=== PATIENT | male | born 1940 | race African-American/Black ===

== ENCOUNTER 2018-01-26 13:21 | Outpatient (CLI) | payer MEDICARE | END 2018-01-26 13:22 | disposition home or self-care (01) | LOC: BICCT 13:21 | PROVIDERS: ATTEND Internal Medicine | DX: R42 Dizziness and giddiness (principal); G31.9 Degenerative disease of nervous system, unspecified | CPT/HCPCS: 70450 ==

== ENCOUNTER 2023-07-29 19:11 | Inpatient (IN) | payer MEDICARE ==
[~2023-07-29 19:11] MED LIST: Amiodarone 150 MG/3 ML VIAL ONE; Calcium Chloride 1 GM/10 ML Abboject SYRINGE ONE; EPINEPHrine 1 MG/10 ML Abboject SYRINGE ONE; Sodium Bicarb 50 MEQ/50 ML Abboject 8.4% SYRINGE ONE
[2023-07-29] MEDS ORDERED: EPINEPHrine 1 MG/10 ML Abboject SYRINGE ONE (19:13)
[2023-07-29] MEDS ORDERED: Calcium Chloride 1 GM/10 ML Abboject SYRINGE ONE (19:13)
[2023-07-29] MEDS ORDERED: Dextrose 50% Abboject 50 ML SYRINGE ONE (19:13)
[2023-07-29] MEDS ORDERED: fentaNYL 50 mcg/mL 1 mL Vial ONE (19:20)
[2023-07-29 19:23] LABS: Hematocrit 26.6 % (42.0-52.0); Hemoglobin 8.4 g/dL (14.0-18.0); Manual Diff?? YES; Mean Corpuscular HGB CONC 31.6 g/dL (32.0-36.0); Mean Corpuscular Hemoglobin 31.1 pg (27.0-31.0); Mean Corpuscular Volume 98.5 fl (78.0-98.0); Mean Platelet Volume 10.5 fL (7.4-10.4); RBC Distribution Width 13.2 % (11.5-14.5); White Blood Cell (WBC) Count 5.2 10x3/uL (4.8-10.8)
[2023-07-29 19:25] LABS: Delete Auto Diff?? YES; Platelet Count 82 10x3/uL (130-400)
[2023-07-29] MEDS ORDERED: NOREPINEPHRINE 8 MG/250 ML-D5W 250 ML ONE (19:26)
[2023-07-29] MEDS ORDERED: Fentanyl CADD 100 ML IV SCH ×2 (19:30→21:45)
[2023-07-29 19:49] LABS: Band 8 % (5-11); CellaVision Operator ID LAB.MJL; Large Platelets 14.6 % (0-5); Lymphocytes 58 % (21-51); Monocytes 1 % (0-10); Myelocyte 2 % (0-0); Neutrophil 30 % (42-75); Ovalocytes SLIGHT = 2-5 cells HPF (0-1); Platelet Adequacy Comment Platelets Decreased; Polychromasia SLIGHT = 2-3 cells HPF (0-2); Reactive Lymphocytes 1 % (0-10); Total Cell Count 103
[2023-07-29] MEDS ORDERED: Vasopressin 20 UNITS/ML VIAL ONE ×2 (19:49→19:51)
[2023-07-29] MEDS ORDERED: Hydrocortisone Sod Succ/PF 100 mg/2 ml Vial ONE ×2 (19:49→19:51)
[2023-07-29 19:57] LABS: Critical Call Chem Troponin I NUR.RR5@1957; Troponin I 0.677 ng/mL (< 0.028)
[2023-07-29 19:58] LABS: Critical Call Chemistry NUR.RR5@1957; Glucose 785 mg/dL (83-110)
[2023-07-29 19:59] LABS: ALT (SGPT) 62 U/L (8-55); AST (SGOT) 137 U/L (5-34); Albumin 2.3 g/dL (3.4-4.8); Alkaline Phosphatase 304 U/L (40-110); Anion Gap 18 mmol/L (10-20); BUN (Urea Nitrogen) 61 mg/dL (8.4-25.7); Bilirubin, Total 0.4 mg/dL (0.2-1.2); Calc. Creatinine Clearance 0 mL/min (70-130); Calcium 7.3 mg/dL (7.8-10.44); Carbon Dioxide 20 mmol/L (23-31); Chloride 106 mmol/L (98-107); Estimated GFR 34; Globulin 2.1 g/dL (2.4-3.5); Potassium 5.8 mmol/L (3.5-5.1); Protein, Total 4.4 g/dL (5.8-8.1); Sodium 138 mmol/L (136-145)
[2023-07-29 20:05] LABS: Analyzer IN Cardio ER; Base Excess (BEa) -13.8 mEq/L (-2.0 to +3.0); CO2 Tension 32.4 mmHg (35.0-45.0); Calcium, Ionized (arterial) 1.35 mmol/L (1.12-1.30); Carboxyhemoglobin (COHb) 0.4 gm% (0.0-3.0); Hematocrit-ABG 22 % (42.0-52.0); Hemoglobin (Hb) 7.4 g/dL (14.0-18.0); O2 Tension (PaO2), arterial 503.9 mmHg (> 60.0); pH, Arterial 7.214 (7.35-7.45)
[2023-07-29 20:12] LABS: INR-International Normal Ratio 2.5
[2023-07-29 20:17] LABS: Critical Call Chem-Lactate NUR.SH13@2015
[2023-07-29 20:18] LABS: Acetaminophen Less than 10 mcg/mL (10.0-30.0); Alcohol Less than 10.0 mg/dL (Less than 10); CK (CPK) 187 U/L (30-200); Magnesium 2.4 mg/dL (1.6-2.6); Salicylate Less than 8.0 mg/dL (15.0-30.0)
[2023-07-29 20:24] LABS: Actual Bicarbonate (HCO3a) 12.8 mEq/L (22-28); Puncture Site RBA
[2023-07-29 20:43] LABS: Amphetamine Not Detected (NotDetected); Barbiturates Screen Not Detected (NotDetected); Benzodiazepine Screen Not Detected (NotDetected); Cocaine Metabolite Screen Not Detected (NotDetected); Methadone Not Detected (NotDetected); Methamphetamine Not Detected (NotDetected); Opiate Screen Not Detected (NotDetected); Oxycodone Screen Not Detected (NotDetected); Phencyclidine (PCP) Not Detected (NotDetected); THC/Cannabinoid Screen Not Detected (NotDetected); Tricyclic Screen Not Detected (NotDetected)
[2023-07-29] MEDS ORDERED: Vancomycin 1 GM/200 ML (FROZEN) BAG ONE (21:18)
[2023-07-29] MEDS ORDERED: Cefepime 2 GM VIAL ONE (21:18)
[2023-07-29] MEDS ORDERED: Sodium Chloride 0.9% 100 ML ONE (21:18)
[2023-07-29] MEDS ORDERED: Ondansetron PF 4 MG/2 ML Vial IVP PRN ×2 (21:25→21:30)
[2023-07-29] MEDS ORDERED: Vasopressin 20 UNITS in Sodium Chloride 0.9% 50 ML IV PRN (21:25)
[2023-07-29] MEDS ORDERED: Ventilator Sedation Protocol 1 EACH FS ONE (21:25)
[2023-07-29] MEDS ORDERED: NOREPINEPHRINE 8 MG/250 ML-D5W 250 ML IVPB PRN (21:25)
[2023-07-29] MEDS ORDERED: Ondansetron ODT 4 MG TAB SL PRN (21:30)
[2023-07-29] MEDS ORDERED: Ventilator Sedation Protocol 1 EACH FS SCH (21:30)
[2023-07-29] MEDS ORDERED: Lactated Ringer's 1,000 ML IV SCH (21:30)
[2023-07-29] MEDS ORDERED: Dextrose 50% Abboject 50 ML SYRINGE SLOW IVP PRN (21:41)
[2023-07-29] MEDS ORDERED: Glucagon 1 MG/ML KIT IM PRN (21:41)
[2023-07-29] MEDS ORDERED: Dextrose 5% in Water 1,000 ML IV PRN (21:41)
[2023-07-29] MEDS ORDERED: Lorazepam 2 MG/ML VIAL SLOW IVP PRN (21:45)
[2023-07-29] MEDS ORDERED: Propofol BOLUS 1,000 MG/100 ML VIAL IV PRN (21:45)
[2023-07-29] MEDS ORDERED: Propofol 1,000 MG/100 ML VIAL IV PRN (21:45)
[2023-07-29] MEDS ORDERED: Morphine 2 MG/ML VIAL SLOW IVP PRN (21:45)
[2023-07-29] MEDS ORDERED: Fentanyl BOLUS 250 ML IVPB PRN (21:45)
[2023-07-29 21:48] LABS: Bacteria/HPF None Seen HPF (None Seen); Bilirubin Negative (Negative); Blood, Urine 1+ (Negative); CAUTI Indications for Culture Alt mental st,lethar; Clarity Clear (Clear); Glucose, Urine (Dipstick) Normal (Negative); Ketone, Urine Negative (Negative); Leukocyte Negative Leu/uL (Negative); Nitrite Negative (Negative); Protein, Urine (Dipstick) 30 mg/dL (Neg-Trace); RBC/HPF 0-3 HPF (0-3); Specific Gravity, Urine 1.011 (1.002-1.036); Squamous Epithelial 0-3 HPF (0-3); Urine Culture Reflex No No; Urobilinogen Normal mg/dL (Less than 2); WBC/HPF 0-3 HPF (0-3); pH, Urine 5.5 (5.0-9.0)
[2023-07-29 21:56] LABS: Albumin 2.5 g/dL (3.4-4.8); Anion Gap 18 mmol/L (10-20); BUN (Urea Nitrogen) 62 mg/dL (8.4-25.7); Bilirubin, Total 0.8 mg/dL (0.2-1.2); Calc. Creatinine Clearance 0 mL/min (70-130); Calcium 8.1 mg/dL (7.8-10.44); Carbon Dioxide 17 mmol/L (23-31); Chloride 109 mmol/L (98-107); Estimated GFR 39; Glucose 385 mg/dL (83-110); Potassium 4.5 mmol/L (3.5-5.1); Protein, Total 4.8 g/dL (5.8-8.1); Sodium 139 mmol/L (136-145)
[2023-07-29 21:57] LABS: ALT (SGPT) 132 U/L (8-55); AST (SGOT) 432 U/L (5-34); Alkaline Phosphatase 550 U/L (40-110); Globulin 2.3 g/dL (2.4-3.5)
[2023-07-29 22:22] LABS: Troponin I 5.539 ng/mL (< 0.028)
[2023-07-29 23:21] LABS: Critical Call Chem-Lactate NUR.SJB@2321; Lactic Acid 10.6 mmol/L (0.5-2.2)
[2023-07-29] MEDS ORDERED: Hydrocortisone Sod Succ/PF 100 mg/2 ml Vial IVP SCH (23:59)
[2023-07-30] MEDS ORDERED: EPINEPHrine 4 MG in Dextrose 5% in Water 250 ML IVP SCH (00:30)
[2023-07-30] MEDS ORDERED: Phenylephrine 40 MG/NS 250 ML 40 MG in Premix 1 BAG IVPB SCH (00:45)
[2023-07-30 01:25] VITALS: BMI 19.8
[2023-07-30] MEDS ORDERED: LevoFLOXacin 750 mg/D5W 750 MG in Premix 1 BAG IVPB SCH (04:00)
[2023-07-30] MEDS ORDERED: Cefepime 1 GM in Sodium Chloride 0.9% 100 ML IVPB SCH (09:00)
[2023-07-30] MEDS ORDERED: Vancomycin 2 GM in Sodium Chloride 0.9% 500 ML IVPB SCH (09:00)
[2023-07-30] MEDS ORDERED: Heparin 5,000 UNITS/ML VIAL SC SCH (09:00)
[2023-07-30] MEDS ORDERED: Cefepime 2 GM in Sodium Chloride 0.9% 100 ML IVPB SCH (09:00)
[2023-07-30] MEDS ORDERED: Vancomycin 1 GM in Premix 1 BAG IVPB SCH (22:00)
== END 2023-07-30 02:25 | disposition expired | DRG 871 ==
LOC: ERS 19:11 → SUATTDRO 19:11 → CCU 19:17
PROVIDERS: ADMIT Family Medicine; ATTEND Family Medicine
DX: A41.9 Sepsis, unspecified organism (principal); E43 Unspecified severe protein-calorie malnutrition; J18.9 Pneumonia, unspecified organism; E78.5 Hyperlipidemia, unspecified
CPT/HCPCS: 36415; 36416; 36600; 70450; 71045; 80048; 80053; 80306; 80307; 81001; 82533; 82805; 83605; 83735; 83880; 84443; 84484; 85025; 85610; 85730; 86850; 86900; 86901; 87040; 87086; 93005; 94002; J0171; J0282; J0692; J1720; J2060; J3010; J3370-JW; J3490; J7999